=== PATIENT | female | born 1970 | race Caucasian/White ===

== ENCOUNTER 2018-05-05 06:18 | Day surgery (SDC) | payer OTHER ==
[~2018-05-05] VITALS: Ht 175.3 cm; Wt 101.6 kg
[2018-05-05 06:41] VITALS: BP 114/78
[2018-05-05 09:50] VITALS: BP 127/87
== END 2018-05-05 09:40 | disposition home or self-care (01) ==
LOC: DS 06:18 → OR 07:30 → DS 09:40
PROVIDERS: Obstetrics & Gynecology
PROC: 0UDB7ZZ Extraction of Endometrium, Via Natural or Artificial Opening (ICD-10-PCS; principal; 2018-05-05 07:30)
DX: N92.1 Excessive and frequent menstruation with irregular cycle (principal); F31.9 Bipolar disorder, unspecified; F17.210 Nicotine dependence, cigarettes, uncomplicated
CPT/HCPCS: C1758; J1170; J2250; J2704; J7120